=== PATIENT | female | born 1995 | race African-American/Black ===

== ENCOUNTER 2019-03-31 18:08 | Observation (INO) | payer SELFPAY ==
[~2019-03-31] VITALS: Ht 160 cm; Wt 78.0 kg
[2019-03-31] MEDS ORDERED: DEXT 5%/LACTATED RINGERS 1,000 ML IV SCH (18:45)
[2019-03-31] MEDS: LACTATED RINGERS 1,000 ML IV SCH ×2 (19:41→21:19)
[2019-03-31 19:46] LABS: CLARITY URINE CLOUDY (CLEAR); COLOR URINE YELLOW (YELLOW); KETONES URINE NEGATIVE (NEGATIVE); LEUKOCYTE ESTERASE URINE 2+ (NEGATIVE); NITRITE URINE POSITIVE (NEGATIVE); OCCULT BLOOD URINE 3+ (NEGATIVE); PROTEIN URINE 3+ (NEGATIVE); SPECIFIC GRAVITY URINE 1.019 (1.005-1.030)
[2019-03-31 20:46] LABS: *AMPHETAMINES SCREEN URINE NEGATIVE (NEGATIVE); *BARBITURATES SCREEN URINE NEGATIVE (NEGATIVE); *BENZODIAZEPINES SCREEN URINE NEGATIVE (NEGATIVE); *COCAINE SCREEN URINE NEGATIVE (NEGATIVE)
[2019-03-31 20:47] LABS: CANNABINOID URINE SCREEN NEGATIVE (NEGATIVE); METHADONE URINE SCREEN NEGATIVE (NEGATIVE); OPIATES URINE SCREEN NEGATIVE (NEGATIVE); PHENCYCLIDINE URINE SCREEN NEGATIVE (NEGATIVE)
[2019-03-31] MEDS ORDERED: FERR325T6 PO (20:47)
[2019-03-31] MEDS ORDERED: FERR325T6 MT (20:47)
[2019-03-31] MEDS ORDERED: ACETAMINOPHEN 500MG TABLET PO NR (21:22)
[2019-03-31] MEDS ORDERED: CEFAZOLIN 2,000 MG in DEXT 5% WATER 100 ML IV SCH (21:30)
== END 2019-03-31 21:50 | disposition home or self-care (01) ==
LOC: 8 EST LDRP 18:08
PROVIDERS: ADMIT Specialist; ATTEND Specialist
DX: O62.9 Abnormality of forces of labor, unspecified (principal); Z3A.33 33 weeks gestation of pregnancy
CPT/HCPCS: 80305; 81003; 96365; 99281; G0378; J0690; J7060

== ENCOUNTER 2019-04-29 09:59 | Observation (INO) | payer MEDICAID ==
[~2019-04-29] VITALS: Ht 157.5 cm; Wt 82.6 kg
[~2019-04-29 09:59] MED LIST: FERR325T6 PO
[2019-04-29] MEDS ORDERED: ACETAMINOPHEN 500MG TABLET PO NR (10:45)
[2019-04-29 11:27] LABS: CLARITY URINE CLEAR (CLEAR); COLOR URINE YELLOW (YELLOW); KETONES URINE NEGATIVE (NEGATIVE); LEUKOCYTE ESTERASE URINE 1+ (NEGATIVE); NITRITE URINE NEGATIVE (NEGATIVE); OCCULT BLOOD URINE NEGATIVE (NEGATIVE); PH URINE 6.5 (4.5-8.0); PROTEIN URINE NEGATIVE (NEGATIVE); SPECIFIC GRAVITY URINE 1.015 (1.005-1.030); UROBILINOGEN URINE 0.2 E.U./dL (0.2-1.0)
== END 2019-04-29 11:40 | disposition home or self-care (01) ==
LOC: 8 EST LDRP 09:59
PROVIDERS: ADMIT Obstetrics & Gynecology; ATTEND Obstetrics & Gynecology
DX: O62.9 Abnormality of forces of labor, unspecified (principal); Z3A.37 37 weeks gestation of pregnancy
CPT/HCPCS: 76815; 81003; G0378; 99281

== ENCOUNTER 2019-11-03 19:19 | Emergency (ER) | payer MEDICAID | END 2019-11-03 21:21 | disposition left against medical advice (07) | LOC: ER 19:19 | DX: R10.9 Unspecified abdominal pain (principal); Z53.21 Procedure and treatment not carried out due to patient leaving prior to being seen by health care provider ==